=== PATIENT | male | born 1940 | race Caucasian/White ===

== ENCOUNTER 2022-04-25 21:23 | Emergency (ER) | payer SELFPAY ==
[~2022-04-25] VITALS: Ht 165.1 cm; Wt 68.2 kg
[2022-04-25 21:24] VITALS: BP 146/82
[2022-04-25] MEDS ORDERED: ACETAMINOPHEN 500 MG TABLET PO ONE (21:45)
== END 2022-04-25 22:15 | disposition home or self-care (01) ==
LOC: EMS 21:23
DX: S90.31XA Contusion of right foot, initial encounter (principal); W22.03XA Walked into furniture, initial encounter; Y93.89 Activity, other specified; Y92.89 Other specified places as the place of occurrence of the external cause; Y99.8 Other external cause status
CPT/HCPCS: 99283

== ENCOUNTER 2022-04-28 18:14 | Emergency (ER) | payer MEDICARE, MEDICAID ==
[~2022-04-28] VITALS: Ht 154.9 cm; Wt 61.4 kg
[2022-04-28] MEDS ORDERED: ACETAMINOPHEN 325 MG TABLET PO ONE (19:15)
[2022-04-28 19:54] LABS: BASOPHILS % (AUTO) 0.6 % (0.0-2.0); EOSINOPHILS % (AUTO) 1.9 % (1.0-6.0); HEMATOCRIT 38.7 % (41-53); HEMOGLOBIN 12.6 g/dL (13.5-17.5); LYMPHOCYTES # (AUTO) 1.7 K/uL (1.0-4.8); LYMPHOCYTES % (AUTO) 21.2 % (22.0-44.0); MEAN CORPUSCULAR HEMOGLOBIN 30.1 pg (26.0-34.0); MEAN CORPUSCULAR HGB CONC 32.5 G/dL (31.0-37.0); MEAN CORPUSCULAR VOLUME 93 fL (80-100); MONOCYTES # (AUTO) 0.6 K/uL (0.1-1.0); MONOCYTES % (AUTO) 7.3 % (2.0-9.0); NEUTROPHILS # (AUTO) 5.5 K/uL (1.8-7.7); PLATELET COUNT (AUTO) 270 K/uL (150-450); RED BLOOD CELL COUNT(AUTO) 4.18 MIL/uL (4.50-5.90)
[2022-04-28 20:03] LABS: ANION GAP 5 mmol/L (8-16); CALCIUM, TOTAL 9.5 mg/dL (8.8-10.5); CARBON DIOXIDE 31 mmol/L (22-29); CHLORIDE 107 mmol/L (98-107); CREATININE 0.61 mg/dL (0.60-1.30); GLOMERULAR FILTR. RATE CALC > 60 mL/min (>60); GLUCOSE,RANDOM 103 mg/dL (70-110); POTASSIUM 4.3 mmol/L (3.5-5.1); SODIUM SERUM 143 mmol/L (136-145); UREA NITROGEN, BLOOD 14 mg/dL (7-18)
[2022-04-28 20:06] LABS: C-REACTIVE PROTEIN QUANT 6.41 mg/dL (0.00-0.30)
[2022-04-28 20:55] LABS: ERYTHROCYTE SEDIMENTATION RATE 97 MM/HR (0-15)
[2022-04-28] MEDS ORDERED: BACTDSB PO (23:18)
[2022-04-28 23:19] VITALS: BP 144/88
[2022-04-28] MEDS ORDERED: SULFAMETHOX/TRIMETH DS 800-160 MG/TABLET PO ONE (23:30)
== END 2022-04-28 23:33 | disposition home or self-care (01) ==
LOC: EMS 18:18
DX: L03.115 Cellulitis of right lower limb (principal)
CPT/HCPCS: 80048; 85025; 85651; 86140; 99285

== ENCOUNTER 2023-01-19 16:31 | Emergency (ER) | payer MEDICARE, MEDICAID ==
[~2023-01-19] VITALS: Ht 154.9 cm; Wt 72.7 kg
[~2023-01-19 16:31] MED LIST: BACTDSB PO
[2023-01-19 16:40] VITALS: TEMP 97.9
[2023-01-19] MEDS ORDERED: PROPARACAINE HCL 0.5% 15 ML OPHTHALMIC SOLUTION OD ONE (17:15)
[2023-01-19] MEDS ORDERED: FLUORESCEIN SODIUM 1 MG STRIP OD ONE (17:15)
[2023-01-19 18:00] VITALS: BP 134/71; PULSE 71; RESP 15
[2023-01-19] MEDS ORDERED: POLYOS OU (18:11)
== END 2023-01-19 18:30 | disposition home or self-care (01) ==
LOC: EMS 16:32
DX: T15.92XA Foreign body on external eye, part unspecified, left eye, initial encounter (principal); T15.91XA Foreign body on external eye, part unspecified, right eye, initial encounter; H57.13 Ocular pain, bilateral
CPT/HCPCS: 99283